=== PATIENT | female | born 2000 | race American Indian/Alaskan Native ===

== ENCOUNTER 2021-03-16 17:44 | Outpatient (CLI) | payer MEDICAID ==
[2021-03-16] MEDS ORDERED: LACTATED RINGERS 1,000 ML IV ONE (19:37)
[2021-03-16 20:10] LABS: Bilirubin,Urine NEG (Negative); Blood,Urine NEG (Negative); Color,Urine Yellow (Yellow); Mucus,Urine FEW /HPF; Protein,Urine <15 mg/dL mg/dL (Negative); Urobilinogen,Urine < 2.0 mg/dL (<2.0)
[2021-03-16 20:34] VITALS: BP 136/89
== END 2021-03-16 21:05 | disposition home or self-care (01) ==
LOC: TRG 17:44 → APU 17:46 → TRG 21:05
DX: O13.3 Gestational [pregnancy-induced] hypertension without significant proteinuria, third trimester (principal); Z3A.30 30 weeks gestation of pregnancy
CPT/HCPCS: 59025; 81001